=== PATIENT | female | born 1960 | race Caucasian/White ===

== ENCOUNTER 2020-04-17 15:03 | Outpatient (REF) | payer MEDICAID, SELFPAY ==
--- NOTE | 2020-04-17 15:10 | MM_ITS ---
EXAMINATION: MM SCREENING DIGITAL BREAST TOMOSYNTHESIS, BILATERAL CLINICAL INFORMATION: Screening. Asymptomatic. The lifetime risk of breast cancer based on the Tyrer-Cuzick Model is 6%. COMPARISON: Mammography: 08/16/2018, 09/19/2016, 02/22/2016, 02/08/2016 TECHNIQUE: Digital breast tomosynthesis is performed in both the craniocaudal and mediolateral oblique views along with computer-aided detection (CAD). Synthesized 2D images are generated from the tomosynthesis. FINDINGS: There are scattered areas of fibroglandular density (ACR BI-RADS breast composition Category b). There are no significant masses, abnormal calcifications, or other abnormalities. The axilla and skin contours are unremarkable. Dermal lesion is again seen overlying the posterior 11:30 o'clock left breast. MM/MM tomosynthesis screening BI IMPRESSION: No significant changes from prior studies. ASSESSMENT: BI-RADS 2: Benign RECOMMENDATION: Routine annual mammography screening. This patient's information was entered into a reminder system with a target due date for their next mammogram.
== END 2020-04-17 15:04 | disposition home or self-care (01) ==
LOC: HO.MAMMO 15:03
PROVIDERS: PCP Pediatrics; Visit Provider Pediatrics
DX: Z12.31 Encounter for screening mammogram for malignant neoplasm of breast (principal)
CPT/HCPCS: 77063; 77067

== ENCOUNTER 2021-05-27 14:42 | Outpatient (REF) | payer MEDICAID, SELFPAY ==
--- NOTE | ~2021-05-27 | MM_ITS ---
EXAMINATION: MM SCREENING DIGITAL BREAST TOMOSYNTHESIS, BILATERAL CLINICAL INFORMATION: Screening. Asymptomatic. The lifetime risk of breast cancer based on the Tyrer-Cuzick Model is 5%. COMPARISON: Mammography: 04/17/2020, 08/16/2018, 09/19/2016 TECHNIQUE: Digital breast tomosynthesis is performed in both the craniocaudal and mediolateral oblique views along with computer-aided detection (CAD). Synthesized 2D images are generated from the tomosynthesis. FINDINGS: The breasts are heterogeneously dense, which may obscure small masses (ACR BI-RADS breast composition Category c). There are no significant masses, abnormal calcifications, or other abnormalities. Parenchymal pattern is similar to prior studies. There is no developing density or architectural abnormality. Dermal lesion again seen overlying posterior 11:30 left breast The axilla and skin contours are unremarkable. No significant changes. MM/MM tomosynthesis screening BI IMPRESSION: No mammographic evidence of malignancy. ASSESSMENT: BI-RADS 2: Benign RECOMMENDATION: Routine annual mammography screening. This patient's information was entered into a reminder system with a target due date for their next mammogram.
== END 2021-05-27 14:43 | disposition home or self-care (01) ==
LOC: HO.MAMMO 14:42
PROVIDERS: PCP Nurse Practitioner Family; Visit Provider Nurse Practitioner Family
DX: Z12.31 Encounter for screening mammogram for malignant neoplasm of breast (principal)
CPT/HCPCS: 77063; 77067

== ENCOUNTER 2022-07-12 15:12 | Outpatient (REF) | payer OTHER, SELFPAY ==
--- NOTE | ~2022-07-12 | MM_ITS ---
EXAMINATION: MM SCREENING DIGITAL BREAST TOMOSYNTHESIS, BILATERAL CLINICAL INFORMATION: Screening. Asymptomatic. The lifetime risk of breast cancer based on the Tyrer-Cuzick Model is 5%. COMPARISON: Mammography: 05/27/2021, 04/17/2020, 08/16/2018 TECHNIQUE: Digital breast tomosynthesis is performed in both the craniocaudal and mediolateral oblique views along with computer-aided detection (CAD). Synthesized 2D images are generated from the tomosynthesis. FINDINGS: The breasts are heterogeneously dense, which may obscure small masses (ACR BI-RADS breast composition Category c). There are no significant masses, abnormal calcifications, or other abnormalities. Again, there are scattered punctate calcifications in both breasts. No architectural abnormality or developing density or significant change from prior studies. The axilla are unremarkable. Skin contours are smooth. MM/MM tomosynthesis screening BI IMPRESSION: No mammographic evidence of malignancy. ASSESSMENT: BI-RADS 2: Benign RECOMMENDATION: Routine annual mammography screening. This patient's information was entered into a reminder system with a target due date for their next mammogram.
== END 2022-07-12 15:13 | disposition home or self-care (01) ==
LOC: HO.MAMMO 15:12
PROVIDERS: PCP Nurse Practitioner Family; Visit Provider Nurse Practitioner Family
DX: Z12.31 Encounter for screening mammogram for malignant neoplasm of breast (principal)
CPT/HCPCS: 77063; 77067

== ENCOUNTER 2023-09-06 13:38 | Outpatient (REF) | payer OTHER, SELFPAY ==
--- NOTE | ~2023-09-06 | MM_ITS ---
EXAMINATION: MM SCREENING DIGITAL BREAST TOMOSYNTHESIS, BILATERAL CLINICAL INFORMATION: Screening. Asymptomatic. COMPARISON: Mammography: This study is compared with prior exams dating back to 2019. TECHNIQUE: Digital breast tomosynthesis is performed in both the craniocaudal and mediolateral oblique views along with computer-aided detection (CAD). Synthesized 2D images are generated from the tomosynthesis. FINDINGS: The breasts are heterogeneously dense, which may obscure small masses (ACR BI-RADS breast composition Category c). There are no significant masses, abnormal calcifications, or other abnormalities. There are scattered, benign calcifications in each breast. MM/MM tomosynthesis screening BI IMPRESSION: No mammographic evidence of malignancy. ASSESSMENT: BI-RADS BI-RADS 2 - Benign Findings RECOMMENDATION: Routine annual mammography screening. 1 year F/U This examination should not preclude the clinical evaluation of a suspicious palpable abnormality. This patient's information was entered into a reminder system with a target due date for their next mammogram.
== END 2023-09-06 13:39 | disposition home or self-care (01) ==
LOC: HO.MAMMO 13:38
PROVIDERS: PCP Internal Medicine; Visit Provider Internal Medicine
DX: Z12.31 Encounter for screening mammogram for malignant neoplasm of breast (principal)
CPT/HCPCS: 77063; 77067

== ENCOUNTER → 2023-09-06 13:45 | Outpatient (BNV) | payer OTHER, SELFPAY | PROVIDERS: PCP Internal Medicine; Visit Provider Radiology Diagnostic Radiology | DX: Z12.31 Encounter for screening mammogram for malignant neoplasm of breast (principal) | CPT/HCPCS: 77063; 77067 ==

== ENCOUNTER 2024-10-29 14:54 | Outpatient (REF) | payer OTHER, SELFPAY ==
--- OUTSIDE RECORDS SUMMARY | 2024-10-29 15:59 | XMS_ITS | Clinical Summary ---
Author Organization [facility] Address [address] [place] [address] Phone Care Team Providers Care Steward/[employer] Name Role Phone Jyoti Miller MD Primary Care Provider [phone] Allergies No known active allergies Encounters Date Type Department Care Team Description 09/20/2024 5:44 AM EDT - 09/20/2024 11:35 AM EDT Emergency [facility] Emergency [address] [place] [address] Nonintractable headache, unspecified chronicity pattern, unspecified headache type (Primary Dx) Discharge Disposition: Home or Self Care from Last 3 Months Surgical History Surgery Date Site/Laterality Comments COLONOSCOPY 09/10/2009 PROCEDURE: VA COLONOSCOPY FLX DX W/COLLJ SPEC WHEN PFRMD; COMMENT: Diverticulosis, otherwise negative examination performed for evaluation of positive FOBT. Medical History Medical History Date Comments Cervicalgia 12/26/2005 DX:Cervicalgia Depressive disorder, not els ewhere classified 12/26/2005 DX:Depressive disorder, not elsewhere classified Anxiety state, unspecified 12/26/2005 DX:An xiety state, unspecified Acute peptic ulcer, unspecif ied site, without mention of hemorrhage, perforation, or obstruction 1992 DX:Acute peptic ulcer, uns pecified site, without mention of hemorrhage, perforation, or obstruction Myalgia and myositis, unspecified 12/26/2005 DX:Myalgia and myositis, unspecified Diverticulosis of colon (wit hout mention of hemorrhage) 09/10/2009 DX:Diverticulosis of colon ( without mention of hemorrhage) Family History Medical History Relation Name Comments Other: liver prob Father Relation Name Status Comments Brother 1 Alive depression Brother 2 Alive depression Father depression. Mother Alive Sister Alive Son 1 Son 2 Alive Social History Tobacco Use Types Packs/Day Years Used Date Smoking Tobacco: Every Day Alcohol Use Standard Drinks/Week Comments No 0 (1 standard drink = 0.6 oz pur e alcohol) Comments Unknown Sex and Gender Information Value Date Recorded Sex Assigned at Not on file Legal Sex Female 7:53 PM EST Gender Identity Not on file Sexual Orientation Not on file Obstetrics History Last Filed Vital Signs Vital Sign Reading Time Taken Comments Blood Pressure 128/71 09/20/2024 6:51 AM EDT Pulse 73 09/20/2024 6:51 AM EDT Temperature 36.8 C (98.2 F) 09/20/2024 6:51 AM EDT Respiratory Rate 18 09/20/2024 6:51 AM EDT Oxygen Saturation 96% 09/20/2024 7:28 AM EDT Inhaled Oxygen Concentration - - Weight 72.6 kg (160 lb) 09/20/2024 12:33 AM EDT Height 149.9 cm (4' 11 ) 09/20/2024 12:33 AM EDT Body Mass Index 32.32 09/20/2024 12:33 AM EDT Plan of Treatment Health Maintenance Due Date Last Done Comments Breast Cancer Screening 1960 Cervical Cancer Screening: Pap Smear 08/29/1983 Pneumococcal Vaccine: 50+ Years (2 of 2 - PCV) 05/21/2020 05/21/2019 RSV Immunization Adult Patients (1 - Risk 60-74 years 1-dose series) 2022 COVID-19 Vaccine ( season) 2023 01/10/2022, 03/25/2021, 07/23/2020, Additional history exists Depression Screening 04/10/2024 Cholesterol Screening (Lipid Panel) 09/20/2024 Colorectal Cancer Screening: Colonoscopy 09/20/2024 HIV Screening 09/20/2024 Hepatitis C Screening 09/20/2024 Social Influencers of Health Screening 09/20/2024 Influenza Vaccine (#1) 2024 , 01/02/2021, 01/02/2021, Additional history exists Hypertension/CHF/CAD Annual BMP Blood Test 09/20/2025 09/20/2024 DTaP,Tdap,and Td Vaccines (3 - Td or Tdap) 01/26/2026 01/27/2016, 02/10/2006 Zoster Vaccines Completed 02/27/2020, 12/06/2019 HIB Vaccines Aged Out No longer eligi ble based on patient's age to complete this topic HPV Vaccines Aged Out No longer eligi ble based on patient's age to complete this topic Hepatitis A Vaccines Aged Out No long er eligible based on patient's age to complete this topic Hepatitis B Vaccines Aged Out No long er eligible based on patient's age to complete this topic IPV Vaccines Aged Out No longer eligi ble based on patient's age to complete this topic MMR Vaccines Aged Out No longer eligi ble based on patient's age to complete this topic Meningococcal ACWY Vaccine Aged Out N o longer eligible based on patient's age to complete this topic Meningococcal B Vaccine Aged Out No l onger eligible based on patient's age to complete this topic RSV Immunization Patients Under 20 months Aged Out No longer eligible based on patient's age to complete this topic Varicella Vaccines Aged Out No longer eligible based on patient's age to complete this topic Procedures Procedure Name Priority Date/Time Associated Diagnosis Comments ECG ANNOTATED 09/23/2024 CT HEAD WO CONTRAST STAT 09/20/2024 9 :24 AM EDT VITAMIN B12 AND FOLATE Add-On 09/20/2024 12:38 AM EDT CBC WITH AUTO DIFFERENTIAL STAT 09/20/2024 12:38 AM EDT MAGNESIUM STAT 09/20/2024 12:38 AM EDT BASIC METABOLIC PANEL STAT 09/20/2024 12:38 AM EDT CBC AND DIFFERENTIAL STAT 09/20/2024 12:38 AM EDT ECG 12-LEAD STAT 09/20/2024 12:35 AM EDT from Last 3 Months Results * ECG-Annotated (09/23/2024) us Provider Onbase MD ECG ORDERABLES Final Result * CT Head wo Contrast (09/20/2024 9:24 AM EDT) Anatomical Region Laterality Modality Head and Neck Computed Tomogra phy 09/20/2024 9:31 AM EDT Impressions 09/20/2024 9:36 AM EDT No acute intracranial abnormality -------- FINAL REPORT -------- Dictated By: PADMAJA BREWSTER Dictated Date: 09/20/2024 09:31 ET Assigned Physician: PADMAJA BREWSTER Reviewed and Electronically Signed By: PADMAJA BREWSTER Signed Date: 09/20/2024 09:36 ET Workstation ID: [id number] Transcribed By: Self Edit Transcribed Date: 09/20/2024 09:31 ET Narrative 09/20/2024 9:36 AM EDT PROCEDURE: HEAD CT INDICATION: Headache TECHNIQUE: CT of the head without intravenous contrast. Multiplanar reformats. The examination was performed utilizing dose reduction techniques. Total DLP 717 COMPARISON: 07/10/2006 FINDINGS: No acute territorial infarct, mass effect, or intracranial hemorrhage. Braga-white differentiation is preserved. Brain parenchyma is within normal limits. Ventricles, sulci, and cisterns are normal in size and configuration. No hydrocephalus or volume loss. Visualized paranasal sinuses and mastoid air cells are clear. No scalp hematoma or skull fracture. Procedure Note Padmaja Brewster MD - 09/20/2024 PROCEDURE: HEAD CT INDICATION: Headache TECHNIQUE: CT of the head without intravenous contrast. Multiplanarreformats. The examination was performed utilizing dose reductiontechniques. Total DLP 717 COMPARISON: 07/10/2006 FINDINGS: No acute territorial infarct, mass effect, or intracranial hemorrhage. Braga-white differentiation is preserved. Brain parenchyma is withinnormal limits. Ventricles, sulci, and cisterns are normal in size and configuration. Nohydrocephalus or volume loss. Visualized paranasal sinuses and mastoid air cells are clear. No scalp hematoma or skull fracture. IMPRESSION: No acute intracranial abnormality -------- FINAL REPORT -------- Dictated By: PADMAJA BREWSTER Dictated Date: 09/20/2024 09:31 ET Assigned Physician: PADMAJA BREWSTER Reviewed and Electronically Signed By: PADMAJA BREWSTER Signed Date: 09/20/2024 09:36 ET Workstation ID: [id number] Transcribed By: Self Edit Transcribed Date: 09/20/2024 09:31 ET us Melody PARKINSON IMG CT PROCEDURES Romina l Result * Vitamin B12 and folate (09/20/2024 12:38 AM EDT) [facility] Vitamin B-12 312 250 - 900 pcg/mL LAB CHEMISTRY METHOD 09/20/2024 8:07 AM EDT [facility] Folate 12.8 2.8 - 17.0 ng/ml LAB CHEMISTRY METHOD 09/20/2024 8:07 AM EDT [facility] Blood Venous blood specimen / Unknown Venipuncture / Unknown 09/20/2024 12:38 AM EDT 09/20/2024 12:56 AM EDT us Maribel Brewer MD LAB BLOOD ORDERABLES Fin al Result [facility] [address] [place] [address], * (ABNORMAL) CBC auto differential (09/20/2024 12:38 AM EDT) [facility] WBC 7.0 4.8 - 10.8 K/mcL LAB HEMETOLOGY METHOD 09/20/2024 1:00 AM EDT [facility] RBC 3.70(L) 3.80 - 4.80 M/mcL LAB HEMETOLOGY METHOD 09/20/2024 1:00 AM EDT [facility] Hemoglobin 11.9 11.5 - 16.0 g/dL LAB HEMETOLOGY METHOD 09/20/2024 1:00 AM EDT [facility] Hematocrit 37.4 35.0 - 47.0 % LAB HEMETOLOGY METHOD 09/20/2024 1:00 AM [facility] MCV 100.5(H) 79.0 - 98.0 FL LAB HEMETOLOGY METHOD 09/20/2024 1:00 AM [facility] MCH 32.0 27.0 - 32.0 pcg LAB HEMETOLOGY METHOD 09/20/2024 1:00 AM [facility] MCHC 31.8(L) 32.0 - 37.0 g/dL LAB HEMETOLOGY METHOD 09/20/2024 1:00 AM [facility] RDW 12.6 11.0 - 15.0 % LAB HEMETOLOGY METHOD 09/20/2024 1:00 AM [facility] Platelets 198 130 - 400 K/mcL LAB HEMETOLOGY METHOD 09/20/2024 1:00 AM [facility] MPV 11.9(H) 7.0 - 11.0 FL LAB HEMETOLOGY METHOD 09/20/2024 1:00 AM [facility] NRBC 0.0 <1.0 % LAB HEMETOLOGY METHOD 09/20/2024 1:00 AM [facility] NRBC Absolute 0.00 <0.10 K/mcL LAB HEMETOLOGY METHOD 09/20/2024 1:00 AM [facility] Neutrophils Relative 34.0 % LAB HEMETOLOGY METHOD 09/20/2024 1:00 AM [facility] Lymphocytes Relative 52.1 % LAB HEMETOLOGY METHOD 09/20/2024 1:00 AM [facility] Monocytes Relative 11.3 % LAB HEMETOLOGY METHOD 09/20/2024 1:00 AM [facility] Eosinophils Relative 1.6 % LAB HEMETOLOGY METHOD 09/20/2024 1:00 AM [facility] Basophils Relative 0.7 % LAB HEMETOLOGY METHOD 09/20/2024 1:00 AM EDT [facility] Immature Granulocytes Relative 0.3 % LAB HEMETOLOGY METHOD 09/20/2024 1:00 AM EDT [facility] Neutrophils Absolute 2.38 1.50 - 7.00 K/mcL LAB HEMETOLOGY METHOD 09/20/2024 1:00 AM EDT [facility] Lymphocytes Absolute 3.65 1.00 - 5.00 K/mcL LAB HEMETOLOGY METHOD 09/20/2024 1:00 AM EDT [facility] Monocytes Absolute 0.79 0.20 - 1.00 K/mcL LAB HEMETOLOGY METHOD 09/20/2024 1:00 AM EDT [facility] Eosinophils Absolute 0.11 0.00 - 0.50 K/mcL LAB HEMETOLOGY METHOD 09/20/2024 1:00 AM EDT [facility] Basophils Absolute 0.05 0.00 - 0.20 K/mcL LAB HEMETOLOGY METHOD 09/20/2024 1:00 AM EDT [facility] Immature Granulocytes Absolute 0.02 0.00 - 0.03 K/mcL LAB HEMETOLOGY METHOD 09/20/2024 1:00 AM EDT [facility] Blood Venous blood specimen / Unknown Venipuncture / Unknown 09/20/2024 12:38 AM EDT 09/20/2024 12:56 AM EDT us Toby Gray MD LAB BLOOD ORDERABLES Final Resu lt [facility] [address] [place] [address], * Magnesium (09/20/2024 12:38 AM EDT) Magnesium 2.1 1.9 - 2.6 mg/dL LAB CHEMISTRY METHOD 09/20/2024 1:31 AM [facility] Blood Venous blood specimen / Unknown Venipuncture / Unknown 09/20/2024 12:38 AM EDT 09/20/2024 12:56 AM EDT us Toby Gray MD LAB BLOOD ORDERABLES Final Resu lt [facility] [address] [place] [address], [place] [phone] * (ABNORMAL) Basic metabolic panel (09/20/2024 12:38 AM EDT) Sodium 139 133 - 145 mmol/L LAB CHEMISTRY METHOD 09/20/2024 1:31 AM [facility] Potassium 4.5 3.5 - 5.5 mmol/L LAB CHEMISTRY METHOD 09/20/2024 1:31 AM [facility] Chloride 106 96 - 110 mmol/L LAB CHEMISTRY METHOD 09/20/2024 1:31 AM [facility] CO2 27 21 - 32 mmol/L LAB CHEMISTRY METHOD 09/20/2024 1:31 AM [facility] Anion Gap 6 3 - 11 LAB CHEMISTRY METHOD 09/20/2024 1:31 AM [facility] Glucose 103(H) 70 - 100 mg/dL LAB CHEMISTRY METHOD 09/20/2024 1:31 AM [facility] BUN 16 5 - 25 mg/dL LAB CHEMISTRY METHOD 09/20/2024 1:31 AM [facility] Creatinine 0.59 0.50 - 1.10 mg/dL LAB CHEMISTRY METHOD 09/20/2024 1:31 AM [facility] eGFR 102 >=60 mL/min/1. 73m2 LAB CHEMISTRY METHOD 09/20/2024 1:31 AM [facility] Comment:Calculation based on the Chronic Kidney Disease Epidemiology Collaboration (CKD-EPI) equation refit without adjustment for race. BUN/Creatinine Ratio 27.1 LAB CHEMISTRY METHOD 09/20/2024 1:31 AM EDT [facility] Calcium 8.8 8.5 - 10.5 mg/dL LAB CHEMISTRY METHOD 09/20/2024 1:31 AM EDT [facility] Blood Venous blood specimen / Unknown Venipuncture / Unknown 09/20/2024 12:38 AM EDT 09/20/2024 12:56 AM EDT Toby Gray MD LAB BLOOD ORDERABLES Final Resu lt Performing Organization Address City/[facility]/ZIP Co de Phone Number [facility] [address] [place] [address], [place] [phone] * ECG 12 lead (09/20/2024 12:35 AM EDT) Ventricular Rate ECG 78 BPM [facility] Atrial Rate 78 BPM [facility] P-R Interval 136 ms GEM[facility] QRS Duration 86 ms GEM[facility] Q-T Interval 388 ms GEMUSE QTc 442 ms GEMUSE P Wave [place] 41 degrees GEMUSE R [place] 6 degrees GEMUSE T [place] 28 degrees GEMUSE ECG Interpretation Normal sinus rhythm Minimal voltage criteria for LVH, may be normal variant ( R in aVL ) Borderline ECG When compared with ECG of 28-SEP-2018 10:12, No significant change was found Confirmed by URSZULA BALLESTEROS ([id number]) on 09/20/2024 12:18:06 PM [facility] 09/20/2024 12:3 5 AM EDT 09/20/2024 12:18 PM EDT Toby Gray MD ECG ORDERABLES Final Result Performing Organization Address City/[facility]/ZIP Co de Phone Number [facility] from Last 3 Months Insurance ED [facility] MEDICAID ADVANTAGE Care Teams Steward[employer] Relationship Specialty Start Date End Date Jyoti Miller MD [facility] [place], [place] PCP - General 01/11/16
== END 2024-10-29 14:55 | disposition home or self-care (01) ==
LOC: HO.MAMMO 14:54
PROVIDERS: PCP Internal Medicine; Visit Provider Internal Medicine
DX: Z12.31 Encounter for screening mammogram for malignant neoplasm of breast (principal)
CPT/HCPCS: 77063; 77067

== ENCOUNTER → 2024-10-29 15:30 | Outpatient (BNV) | payer OTHER, SELFPAY | PROVIDERS: PCP Internal Medicine; Visit Provider Radiology Body Imaging | DX: Z12.31 Encounter for screening mammogram for malignant neoplasm of breast (principal) | CPT/HCPCS: 77063; 77067 ==